=== PATIENT | male | born 1950 | race Caucasian/White ===

== ENCOUNTER 2020-05-12 10:31 | Observation (INO) | payer OTHER ==
[2020-05-11 14:58] LABS: BASOPHILS # (AUTO) 0.1 X10'3 (0-0.2); EOSINOPHILS # (AUTO) 0.3 X10'3 (0-0.9); HEMOGLOBIN 12.9 g/dl (14.0-17.9); LYMPHOCYTES # (AUTO) 1.8 X10'3 (1.1-4.8); MONOCYTES # (AUTO) 0.5 X10'3 (0-0.9)
[2020-05-11 15:00] LABS: BASOPHILS % (AUTO) 0.8 % (0-1); EOSINOPHILS % (AUTO) 3.2 % (0-6); HEMATOCRIT 38.1 % (42.0-52.0); LYMPHOCYTES % (AUTO) 19.7 % (21-51); MEAN CORPUSCULAR HEMOGLOBIN 28.3 PG (27.0-31.0); MEAN CORPUSCULAR VOLUME 83.4 FL (78-98); MEAN PLATELET VOLUME 7.5 FL (7.4-10.4); MONOCYTES % (AUTO) 5.8 % (2-12); NEUTROPHILS # (AUTO) 6.6 X10'3 (1.8-7.7); NEUTROPHILS % (AUTO) 70.5 % (42-75); PLATELET COUNT 268 X10'3 (140-440); RED BLOOD COUNT 4.57 X10'6 (4.70-6.10); RED CELL DISTRIBUTION WIDTH 15.9 % (11.5-14.5); WHITE BLOOD COUNT 9.3 X10'3 (4.5-11.0)
[2020-05-11 15:11] LABS: PARTIAL THROMBOPLASTIN TIME 27 SECONDS (22-32)
[2020-05-11 15:13] LABS: ALBUMIN 3.8 G/DL (3.4-5.0); ANION GAP 7 (8-16); BLOOD UREA NITROGEN 16 MG/DL (7-18); CALCIUM 9.1 MG/DL (8.5-10.1); CHLORIDE 105 MMOL/L (99-107); CREATININE 0.84 MG/DL (0.60-1.10); GLUCOSE 214 MG/DL (70-104); POTASSIUM 3.8 MMOL/L (3.5-5.1); SODIUM 139 MMOL/L (135-145); TOTAL CARBON DIOXIDE 26.6 MMOL/L (24-32); eGFR > 90 ML/MIN
[2020-05-12] VITALS (17 sets, daily range): BP systolic 126–192; BP diastolic 45–97
[~2020-05-12] VITALS: Ht 200.7 cm; Wt 147.0 kg
[2020-05-12] MEDS ORDERED: acetylcysteine 200 MG/ml 4ml vial PO PRN (11:00)
[2020-05-12] MEDS ORDERED: diphenhydrAMINE 25mg capsule PO PRN (11:00)
[2020-05-12] MEDS ORDERED: LIDOcaine/PRILOcaine 5gm cream TP ONE (11:00)
[2020-05-12] MEDS: normal saline 1,000 ML IV SCH ×2 (11:25→21:54)
[2020-05-12] MEDS ORDERED: KRIL1CAP PO (11:31)
[2020-05-12] MEDS ORDERED: METF1000 PO (11:31)
[2020-05-12] MEDS ORDERED: VITAMIN B12 PO (11:31)
[2020-05-12] MEDS ORDERED: LOSA50TA64 PO (11:31)
[2020-05-12] MEDS ORDERED: MULT-1085 PO (11:31)
[2020-05-12] MEDS ORDERED: ASPI-1265 PO (11:31)
[2020-05-12] MEDS ORDERED: SALM1CAP4 PO (11:31)
[2020-05-12] MEDS ORDERED: CANA300T PO (11:31)
[2020-05-12] MEDS ORDERED: CINN500C15 (11:31)
[2020-05-12] MEDS ORDERED: CHLO25TA10 PO (11:31)
[2020-05-12] MEDS ORDERED: UBID400C6 PO (11:31)
[2020-05-12] MEDS ORDERED: METO25TA6 PO (11:31)
[2020-05-12] MEDS ORDERED: GLIP10TA11 PO (11:31)
[2020-05-12] MEDS ORDERED: GABA300C PO (11:31)
[2020-05-12] MEDS ORDERED: METO100T14 PO (11:31)
[2020-05-12] MEDS ORDERED: ATOR80TA PO (11:31)
[2020-05-12] MEDS ORDERED: INSU3INS2 SQ (11:32)
[2020-05-12] MEDS ORDERED: normal saline 1,000 ML IV SCH (11:50)
[2020-05-12] MEDS ORDERED: LORazepam 0.5 MG tablet PO PRN (11:50)
[2020-05-12] MEDS ORDERED: LIDOcaine 1% (10mg/ml)w/preservative injection 20ml MDV ONE (14:44)
[2020-05-12] MEDS ORDERED: fentaNYL/PF 50MCG/1 ML 2ML syringe ONE (14:44)
[2020-05-12] MEDS ORDERED: heparin 1,000unit/ml 10ml vial 10 ML ONE ×2 (14:44→16:08)
[2020-05-12] MEDS ORDERED: midazolam 2 mg/2 ml injection ONE (14:44)
[2020-05-12] MEDS ORDERED: verapamil 2.5 mg/ml inj IV ONE (14:44)
[2020-05-12] MEDS ORDERED: nitroGLYCERIN-Tridil 50MG/D5W 250 ML IV ONE (14:45)
[2020-05-12] MEDS ORDERED: iohexol 350MG/ML 100ml bottle IV ONE ×2 (14:45→15:55)
[2020-05-12] MEDS ORDERED: iohexol 350 MG/ML 50ML vial IV ONE ×2 (14:45→16:29)
[2020-05-12] MEDS ORDERED: heparin 25,000 UNIT/250ml bag 250 ML IV ONE (16:04)
[2020-05-12] MEDS ORDERED: clopidogrel 300mg tablet ONE ×2 (16:08→16:47)
[2020-05-12] MEDS ORDERED: atropine 0.1mg/ml 10ml syringe ONE (16:10)
[2020-05-12] MEDS ORDERED: hydrALAZINE 20mg/ml inj. IV ONE ×2 (16:50→18:45)
[2020-05-12] MEDS ORDERED: morphine 4 MG/ML inj SYRINge ONE (19:07)
[2020-05-12] MEDS ORDERED: OXAZEpam 15mg capsule PO PRN (19:10)
[2020-05-12] MEDS ORDERED: proCHLORperazine 10 MG/2 ml inj IV PRN (19:10)
[2020-05-12] MEDS ORDERED: cyclobenzaprine 10mg tablet PO PRN (19:10)
[2020-05-12] MEDS ORDERED: acetaminophen 325mg tablet PO PRN (19:10)
[2020-05-12] MEDS ORDERED: magnesium hydroxide 30ml (MOM) UD suspension PO PRN (19:10)
[2020-05-12] MEDS ORDERED: HYDROcodone/acetaminophen 10/325mg tab PO PRN ×2 (19:15)
[2020-05-12] MEDS ORDERED: hydrALAZINE 20mg/ml inj. IV PRN (19:15)
--- NOTE | 2020-05-12 20:00 | NUR ---
Problems reprioritized. Patient report given, questions answered & plan of care reviewed with Arden, RN, VSS, pt's Jimmy RAMIRES CDI, pt is in stable condition and will be transferred to [facility] rm#[id number] shortly.
--- NOTE | 2020-05-12 20:15 | NUR ---
VSS, pt is in stable condition, R lui dsg CDI, pt transferred to [facility] RM#[id number].
[2020-05-12] MEDS ORDERED: LIXISENATIDE SQ SCH (21:00)
[2020-05-12] MEDS ORDERED: atorvastatin 20mg tablet PO SCH (21:00)
[2020-05-12] MEDS: omega-3 acid ethyl esters 1GM capsule PO SCH (21:00)
[2020-05-12] MEDS ORDERED: metoprolol tartrate 25mg tablet PO SCH (21:00)
[2020-05-12] MEDS ORDERED: INSULIN GLARGINE SQ SCH (21:00)
[2020-05-12] MEDS: docusate sod 100mg capsule PO SCH (21:54)
[2020-05-12] MEDS: aspirin 81mg tab.chew PO SCH (21:54)
--- NOTE | 2020-05-13 00:16 | NUR ---
Patient in room MED 313. I have received report from Brit ACEVEDO and had the opportunity to ask questions and assume patient care.
[2020-05-13 01:00] VITALS: BP 141/51
[2020-05-13 02:00] VITALS: BP 137/50
[2020-05-13 06:00] VITALS: BP 150/60
[2020-05-13 06:10] LABS: BASOPHILS # (AUTO) 0.1 X10'3 (0-0.2); BASOPHILS % (AUTO) 0.6 % (0-1); EOSINOPHILS # (AUTO) 0.3 X10'3 (0-0.9); EOSINOPHILS % (AUTO) 2.5 % (0-6); HEMOGLOBIN 12.5 g/dl (14.0-17.9); LYMPHOCYTES # (AUTO) 1.5 X10'3 (1.1-4.8); MEAN CORPUSCULAR HEMOGLOBIN 27.9 PG (27.0-31.0); MEAN CORPUSCULAR HGB CONC 33.6 g/dL (33.0-36.5); MEAN PLATELET VOLUME 7.6 FL (7.4-10.4); MONOCYTES # (AUTO) 0.6 X10'3 (0-0.9); MONOCYTES % (AUTO) 5.6 % (2-12); NEUTROPHILS # (AUTO) 8.1 X10'3 (1.8-7.7); NEUTROPHILS % (AUTO) 77.3 % (42-75); PLATELET COUNT 230 X10'3 (140-440); RED BLOOD COUNT 4.46 X10'6 (4.70-6.10); WHITE BLOOD COUNT 10.5 X10'3 (4.5-11.0)
[2020-05-13 06:15] LABS: ALBUMIN 3.4 G/DL (3.4-5.0); ANION GAP 9 (8-16); BLOOD UREA NITROGEN 13 MG/DL (7-18); BUN/CREATININE RATIO 17.8 (5.4-32.0); CHLORIDE 106 MMOL/L (99-107); CREATININE 0.73 MG/DL (0.60-1.10); GLUCOSE 105 MG/DL (70-104); POTASSIUM 3.7 MMOL/L (3.5-5.1); SODIUM 140 MMOL/L (135-145); TOTAL CARBON DIOXIDE 24.8 MMOL/L (24-32); eGFR > 90 ML/MIN
--- NOTE | 2020-05-13 06:26 | NUR ---
Problems reprioritized. Patient report given, questions answered & plan of care reviewed with Chrissy ACEVEDO.
[2020-05-13] MEDS ORDERED: glipizide 5mg tablet PO SCH (07:30)
[2020-05-13] MEDS ORDERED: metoprolol tartrate 50mg tablet PO SCH (08:00)
[2020-05-13] MEDS ORDERED: gabapentin 300mg capsule PO SCH (08:00)
[2020-05-13] MEDS ORDERED: non-formulary drug (Krill/Om3/Dha/Epa/Om6/Lip/Astx (Krill Oil 1,000 Mg Softgel) 1 EACH) PO SCH (08:00)
[2020-05-13] MEDS ORDERED: aspirin 81mg tab.chew PO SCH (08:00)
[2020-05-13] MEDS ORDERED: losartan 50mg tablet PO SCH (08:00)
[2020-05-13] MEDS ORDERED: chlorthalidone 25mg tablet PO SCH (08:00)
[2020-05-13] MEDS ORDERED: CANAGLIFLOZIN 300 MG PO SCH (08:00)
[2020-05-13] MEDS ORDERED: UBIDECARENONE 400 MG PO SCH (08:00)
[2020-05-13] MEDS ORDERED: multivitamins, therapeutics tablet PO SCH (08:00)
[2020-05-13] MEDS: omega-3 acid ethyl esters 1GM capsule PO SCH (08:00)
[2020-05-13] MEDS ORDERED: cyanocobalamin 500mcg tablet PO SCH (08:00)
[2020-05-13] MEDS ORDERED: clopidogrel 75mg tablet PO SCH (08:00)
[2020-05-13] MEDS ORDERED: metFORMIN 500mg tablet PO SCH (08:00)
[2020-05-13] MEDS: docusate sod 100mg capsule PO SCH (08:02)
[2020-05-13] MEDS: aspirin 81mg tab.chew PO SCH (08:03)
[2020-05-13] MEDS ORDERED: METF1000 PO (09:08)
[2020-05-13] MEDS ORDERED: CLOP75TA35 PO (09:08)
--- NOTE | 2020-05-13 11:38 | NUR ---
pt. discharged from facility at 1040. pt. was wheeled down to private vehicle by staff to meet his daughter. pt. signed and understood all paperwork. pt. IVs were d/c intact. new meds were called into [facility]. pt. has an appointment already scheduled with his PCP on 05/27/20 and understands to make appointment with Dr. An. pt. left with all belongings.
[2020-05-14] MEDS ORDERED: metFORMIN 500mg tablet PO SCH (08:00)
== END 2020-05-13 10:35 | disposition home or self-care (01) ==
LOC: SSTAY O 10:31 → MED 3N 17:00
PROVIDERS: ADMIT Internal Medicine Cardiovascular Disease; ATTEND Internal Medicine Cardiovascular Disease
DX: I25.10 Atherosclerotic heart disease of native coronary artery without angina pectoris (principal); R94.30 Abnormal result of cardiovascular function study, unspecified; E11.9 Type 2 diabetes mellitus without complications; I10 Essential (primary) hypertension; E78.5 Hyperlipidemia, unspecified; E66.9 Obesity, unspecified; Z95.5 Presence of coronary angioplasty implant and graft; Z68.36 Body mass index [BMI] 36.0-36.9, adult
CPT/HCPCS: 36415; 76937; 80048; 82948; 85025; 85347; 85610; 85730; 87081; 93005; 93458; 96374; C1725; C1751; C1769; C1874; C1894; C9600; C9601; G0378; J0360; J0461; J1644; J2001; J2250; J2270; J3010; J7030; J7040; Q0163; Q9967; 99152; 99153; A4620; A6258; J3490